=== PATIENT | female | born 2000 | race Caucasian/White ===

== ENCOUNTER 2021-05-10 19:21 | Emergency (ER) | payer OTHER, MEDICAID, SELFPAY ==
--- NOTE | ~2021-05-10 | XR_ITS ---
EXAMINATION: XR finger 4th RT min 2V INDICATION: Right fourth finger pain, initial encounter TECHNIQUE: Three views of the right fourth finger are obtained. COMPARISON: None available FINDINGS: There is an acute, traumatic, oblique fracture of the lateral head of the fourth middle pha lanx which extends to the distal interphalangeal joint. The fracture fragments are by appro ximately 1.2 mm. Soft tissue swelling surrounds the fracture. No additional acute osseous findings ar e evident. IMPRESSION: 1. Oblique intra-articular fracture of the fourth middle phalanx. Reviewed, dictated and finalized at location A.
[2021-05-10 19:33] VITALS: BP 122/82; PULSE 84; RESP 16; TEMP 37.3; O2SAT 100
--- NOTE | 2021-05-10 19:37 | ED.UPPEXIN ---
HPI - Extremity Injury (Upper) General Chief Complaint: Extremity Injury, Upper Stated Complaint: rt hand ring finger injury Time Seen by Provider: 05/10/21 19:37 Source: patient Mode of arrival: ambulatory Limitations: no limitations History of Present Illness HPI narrative: Mariajose Lau is a 21 yo female with no PMH who to [facility] with ecchymosis and swelling of her fourth right finger after playing flag football last night. States she went to grab opposing team flag from her waist and jammed her finger into the side of the woman. Is able to move proximal joint but not distal Related Data Home Medications Medication Instructions Recorded Confirmed medroxyprogesterone [Depo-Provera mg IM 05/10/21 Contraceptive] Allergies Allergy/AdvReac Type Severity Reaction Status Date / Time No Known Allergies Allergy Verified 05/10/21 19:31 Review of Systems Review of Systems: CONSTITUTIONAL: Denies fever, chills, sweats. EYES: Denies visual changes, redness, discharge. ENT: Denies rhinorrhea, congestion, sore throat, otalgia. CARDIOVASCULAR: Denies chest pain, palpitations, edema. RESPIRATORY: Denies dyspnea, wheezing, cough GASTROINTESTINAL: Denies abdominal pain, nausea, vomiting, diarrhea. GENITOURINARY: Denies dysuria, hematuria, abnormal discharge SKIN: Denies rash or itching. NEUROLOGIC: Denies numbness, or focal weakness. PSYCHIATRIC: Denies anxiety or depression. Right fourth finger ecchymosis and swelling with limited movement PMFSH Past Medical History Medical History No acute medical problems Family History Family History Other No acute medical problems Social History Social History (Updated 05/10/21 @ 19:44 by Conchis Childers CNP) Smoking status: Never smoker Alcohol intake: current Comments At time of signature, I agree with nursing past medical, surgical, social and family history. There is no relevant family history pertinent to the presenting complaint. Exam Narrative: GENERAL: This is a well-nourished, well-developed patient, in mild distress. HEAD: normocephalic, atraumatic. EYES: Sclera clear/white. Vision is grossly intact. EARS: External ears normal, Hearing grossly intact. NOSE: External nose normal without nasal discharge, nares without redness, no rhinorrhea. THROAT: Mucous membranes moist, NECK: Neck supple, CARDIOVASCULAR: Regular rate and rhythm without murmurs, gallops, or rubs. RESPIRATORY: Clear to auscultation. Breath sounds equal bilaterally. No wheezes, rales, or rhonchi. GASTROINTESTINAL: Abdomen soft, SKIN: warm, intact with no suspicious lesions or rash, good texture and turgor. NEURO: awake, alert, and oriented to person, place and time. There were no obvious focal neurologic abnormalities. Steady gait EXTREMITIES: Normal range of motion. Forthright finger ecchymosis and swelling with limitation in movement of the distal joint is able to move finger up and down good inner finger strength and able to do finger opposition of the right hand, radial pulse neurovascularly intact BACK: Nontender without deformity Course Course Emergency Course: Patient comes for evaluation of right fourth finger after injury last night X-ray shows-oblique fracture of the lateral head of the fourth middle phalanx which extends to the distal interphalangeal joint segment proximal by 1.2 mm soft tissue swelling around fracture no other acute findings Patient placed in splint-referred to orthopedics with a backup to hand surgeon Dr. Chase-from direction for rice and NSAID as its been over 24 hours since the injury Pt placed in preformed finger splint by nurse- neurovascularly intact pre and post placement Ibuprofen 600 mg for pain Vital Signs Vital signs: Vital Signs Temperature 99.2 F 05/10/21 19:33 Pulse Rate 84 05/10/21 19:33 Respiratory Rate 16
== END 2021-05-10 20:05 | disposition home or self-care (01) ==
PROVIDERS: Emergency Provider Nurse Practitioner
DX: S62.664A Nondisplaced fracture of distal phalanx of right ring finger, initial encounter for closed fracture (principal); W51.XXXA Accidental striking against or bumped into by another person, initial encounter; Y93.62 Activity, american flag or touch football
CPT/HCPCS: 29130; 73140; 99214; G0463

== ENCOUNTER 2021-05-17 01:15 | Day surgery (SDC) | payer OTHER, MEDICAID, SELFPAY ==
[2021-05-16 15:49] VITALS: BMI 19.8
[2021-05-17] VITALS (7 sets, daily range): BP systolic 93–119; BP diastolic 57–72; PULSE 63–78; RESP 12–20; TEMP 36.8; O2SAT 99–100; BMI 19.8
--- NOTE | ~2021-05-17 | XR_ITS ---
EXAMINATION: XR surgery orthopedic DATE: 05/17/2021 14:33 INDICATION: Fixation of an intra-articular fracture of the right fourth middle phalanx TECHNIQUE: 4 fluoroscopic images of the mid to distal right fourth digit were obtained during procedu re performed by Dr. Chase. Radiologist was not present for the imaging or procedure. The amount of fl uoroscopy time used during this procedure was 1.7 minutes. Total DAP was 0.013 mGycm^2 COMPARISON: None. FINDINGS: Interval reduction to essentially anatomic alignment of an oblique extra articular fracture involving the radial sided condyle of the fourth middle phalanx. The fracture is fixed with a pair o f percutaneous pins. No appreciable fracture gap or incongruity at the articular surface. Joint space s are normal. IMPRESSION: 1. Essentially anatomic alignment post reduction and percutaneous pin fixation of an intra-articular fracture at the head of the right fourth middle phalanx. Reviewed, dictated and finalized at location B.
--- NOTE | 2021-05-17 07:15 | WPDHPUPDATE1 ---
History and Physical Update Update Date/Time: 05/17/21 07:15 History and Physical has been reviewed, including an updated exam of the patient. There are NO changes in the patient's condition. Risks, benefits, and alternatives have been discussed and questions answered. Patient agrees to proceed with procedure.
[2021-05-17] MEDS: ACETAMINOPHEN 500 MG TABLET 1000 MG PO (13:10)
[2021-05-17] MEDS: ceFAZolin 2 GM/D5W 50 ML 2 GM/50 ML BAG IVPB (13:28)
--- NOTE | 2021-05-17 14:21 | SUR.OPER ---
Tourni-Cot (Medium) applied to Right Ring Finger at 1350 and removed at 1420. Total of 30 minutes.
--- NOTE | 2021-05-17 15:19 | SUR.PHASEII ---
1520 dr blue added a splint to the ring finger
--- NOTE | 2021-05-17 15:22 | W.PM.PROC2 ---
Procedure Note - Detailed Date of Procedure 05/17/21 Pre-op Diagnosis 4th middle phalanx fx Post-op Diagnosis same Procedure Performed Closed reduction and percutaneous pinning of a displaced fracture of the middle phalanx of the right ring finger Surgeon Austin Chase MD Technician [employer] Irwin mandujano Anesthesia local Indications Displaced fracture Description of Procedure The patient was taken to the operating room and placed supine on the operating table. Her procedure was scheduled under local anesthetic and the time-out was held and confirmed. The extremity was prepped and draped in usual fashion. A digital block was placed using 1% lidocaine with epinephrine. A red tourniquet was placed on the finger. The C-arm was brought in and the fracture site imaged. There was 1 displaced fracture fragment. We were able to reduce that well by digital manipulation. A C-wire guide bone forceps was placed over the fracture and skin. A 0.0 2 8 C wire was passed through the stable head of the middle phalanx into the fracture fragment. Once satisfied with the placement of that pin a 2nd .028 inch C wire was driven parallel through both fragments in the same fashion. This was imaged and both pins were cut to allow application of a Jurgan ball. The distal phalanx could be passively moved without difficulty. A single Jurgan ball was applied over both pins and the screw set tightly. The ball was stabilized to the patient with the shortened Alumafoam splint and Coban wrap. She is discharged home with explicit instructions and a prescription for hydrocodone 5/325 4. Implants 0.028 inch C wire x2 Estimated Blood Loss 0 Tourniquet Time 30 Drains No Packing No Pathology none sent Complications No immediate complications Condition stable Disposition same day
== END 2021-05-17 15:36 | disposition home or self-care (01) ==
PROVIDERS: PCP Family Medicine; Visit Provider Plastic Surgery
PROC: (CPT 26727; principal; 2021-05-17 13:30)
DX: S62.624A Displaced fracture of middle phalanx of right ring finger, initial encounter for closed fracture (principal); W51.XXXA Accidental striking against or bumped into by another person, initial encounter; Y93.62 Activity, american flag or touch football
CPT/HCPCS: 26727; 87426; A9270; C1713; C9803; J0690

== ENCOUNTER 2021-05-17 11:40 | Outpatient (CLI) | payer OTHER, MEDICAID, SELFPAY ==
[2021-05-17 12:26] LABS: EDCOVIDSCREEN Negative (Negative)
== END 2021-05-17 11:41 | disposition home or self-care (01) ==
PROVIDERS: PCP Family Medicine; Visit Provider Plastic Surgery
DX: Z01.812 Encounter for preprocedural laboratory examination (principal); Z20.822 Contact with and (suspected) exposure to COVID-19
CPT/HCPCS: 87426; C9803

== ENCOUNTER 2021-06-13 15:17 | Emergency (ER) | payer OTHER, MEDICAID, SELFPAY ==
[2021-06-13 15:26] VITALS: BP 127/91; PULSE 120; RESP 16; TEMP 37.3; O2SAT 100
--- NOTE | 2021-06-13 15:55 | ED.URI ---
HPI - URI/Sore Throat General Chief Complaint: Upper Respiratory Infection Stated Complaint: chest congesiton/cough/diarrhea/chills Time Seen by Provider: 06/13/21 15:40 Source: patient and RN notes reviewed Mode of arrival: ambulatory Limitations: no limitations History of Present Illness HPI Narrative: Patient presents today complaining of a slight occasional cough and postnasal drainage. Symptoms began yesterday. Denies any additional symptoms to include sore throat, fever, rhinorrhea, shortness of breath, nausea or vomiting, loss of taste or smell. She has been taking some DayQuil and NyQuil every 4 hours for her symptoms. She leaves on vacation in 2 days and wanted to make sure she was not contagious to her family. MD elicited complaint: cough Related Data Home Medications Medication Instructions Recorded Confirmed medroxyprogesterone 150 mg IM ONCE 05/10/21 05/16/21 Allergies Allergy/AdvReac Type Severity Reaction Status Date / Time No Known Allergies Allergy Verified 05/17/21 12:58 Review of Systems Review of Systems: CONSTITUTIONAL: Denies body aches, fever, chills, or sweats. EYES: Denies visual changes, redness, or discharge. ENT: Denies rhinorrhea, congestion, sore throat, or otalgia.+ Postnasal drip CARDIOVASCULAR: Denies chest pain, palpitations, or edema. RESPIRATORY: Denies dyspnea.+ Cough GASTROINTESTINAL: Denies abdominal pain, nausea, vomiting, or diarrhea. GENITOURINARY: Denies dysuria or hematuria. SKIN: Denies rash, itching, or wounds. MUSCULOSKELETAL: Denies back pain, joint pain, or myalgia. NEUROLOGIC: Denies headache, numbness, tingling, or weakness. PSYCH: Denies depression or anxiety. [facility], [facility] Past Medical History Medical History No acute medical problems Family History Family History Other No acute medical problems Social History Social History Smoking status: Never smoker Alcohol intake: current Alcohol use details: OCCASSIONAL AT PARTIES Substance use: never Substance use type: does not use Spiritual care concerns: No Comments At time of signature, I have reviewed and agree with nursing past medical, surgical, social and family history unless otherwise noted. Please see nursing chart for further information. There is no relevant family history pertinent to the presenting complaint Exam Narrative: GENERAL: Well-appearing, well-nourished, and in no acute distress. HEAD: Normocephalic, atraumatic. EYES: EOMI. No redness or drainage. Conjunctivae normal. ENT: Mucous membranes pink and moist. Nares clear. No rhinorrhea. TMs normal bilaterally. Throat normal. Uvula midline. NECK: Normal AROM. Supple. No lymphadenopathy. CHEST: No respiratory distress. Clear to auscultation. HEART: Regular rate and rhythm. No murmur appreciated. Normal peripheral pulses. EXTREMITIES: Normal range of motion. No edema. SKIN: Warm, dry, no rash. Capillary refill normal. Normal skin turgor. NEURO: No focal deficits. Alert and oriented x3. Gait steady. PSYCH: Normal affect. No signs of depression or anxiety. Course Vital Signs Vital signs: Vital Signs Temperature 99.2 F 06/13/21 15:26 Pulse Rate 120 H 06/13/21 15:26 Respiratory Rate 16 06/13/21 15:26 Blood Pressure 127/91 H 06/13/21 15:26 Pulse Oximetry 100 06/13/21 15:26 Temperature 99.2 F 06/13/21 15:26 Pulse Rate 120 H 06/13/21 15:26 Respiratory Rate 16 06/13/21 15:26 Blood Pressure 127/91 H 06/13/21 15:26 Pulse Oximetry 100 06/13/21 15:26 Reviewed. Pt has been instructed to follow up with her PCP regarding her elevated blood pressure today. MDM - URI/Sore Throat Differential Diagnosis Differential diagnosis: Likely upper respiratory infection, sinusitis, viral infection and bronchitis Critical Ca
== END 2021-06-13 16:07 | disposition home or self-care (01) ==
PROVIDERS: Emergency Provider Nurse Practitioner
DX: J06.9 Acute upper respiratory infection, unspecified (principal)
CPT/HCPCS: 99211; G0463

== ENCOUNTER → 2021-06-27 14:32 | Outpatient (CLI) | payer OTHER, MEDICAID, SELFPAY ==
--- NOTE | ~2021-06-27 | XR_ITS ---
XR finger 4th RT min 2V DATE: 06/27/2021 14:41 INDICATION: Follow-up of fracture fixation TECHNIQUE: 4 views COMPARISON: 05/10/2021 right fourth digit FINDINGS: There is a fixation device extending percutaneously from a dorsal medial approach through t he linear intra-articular fracture of the head of the middle phalanx, with virtually anatomic positio n and alignment at the fracture site. IMPRESSION: Virtually anatomic position and alignment at linear intra-articular fracture of head of t he middle phalanx Reviewed, dictated and finalized at location A. ELAIN SLUSHER IMPRESSION: Virtually anatomic position and alignment at linear intra-articular fracture of head of the middle phalanx
== END ==
PROVIDERS: PCP Plastic Surgery; Visit Provider Plastic Surgery
DX: S62.624A Displaced fracture of middle phalanx of right ring finger, initial encounter for closed fracture (principal)
CPT/HCPCS: 73140